=== PATIENT | female | born 1965 | race Caucasian/White ===

== ENCOUNTER 2019-11-28 14:37 | Emergency (ER) | payer OTHER, SELFPAY ==
--- NOTE | ~2019-11-28 | XR_ITS ---
XR knee RT min 4V 11/28/2019 15:26 Indication: Right lateral knee pain after recent fall Procedure: 4 views right knee Comparison: 05/03/2017 Findings: There is a nondisplaced proximal fibular metaphyseal fracture. No significant joint effusio n. There is mild patellofemoral compartment osteoarthritis. No foreign bodies. Impression: 1: Nondisplaced proximal fibular metaphyseal fracture. Reviewed, dictated and finalized at location A. R MANAGER Impression: 1: Nondisplaced proximal fibular metaphyseal fracture.
[2019-11-28 14:51] VITALS: BP 131/75; PULSE 86; RESP 16; TEMP 37.4; O2SAT 100
--- NOTE | 2019-11-28 15:06 | ED.GENADULT ---
HPI - General Adult General Chief complaint: Extremity Injury, Lower Stated complaint: right leg pain Time Seen by Provider: 11/28/19 15:06 Source: patient and RN notes reviewed Mode of arrival: ambulatory Limitations: no limitations History of Present Illness HPI narrative: This is a 54 years old female presented office for evaluation of right knee injury since yesterday. She was carrying about 30 pounds of box at work going down the stair, missed about 2 steps landed on the carpeted floor and a heavy box landed on her right knee.She complain of left shoulder stiffness and back spasm however pain is tolerable except her right knee. Pain is constant and worse with weightbearing. Denies numbness or tingling in the lower leg. Admits to history of knee swelling without surgery or trauma in the past. She is right hand dominant. Denies head injury. She has tried ice prior to arrival. Related Data Home Medications Medication Instructions Recorded Confirmed cyclobenzaprine 5 mg tablet 5 mg PO TID PRN 10/16/19 11/28/19 estradiol-norethindrone acet 0.5 1 tablet PO DAILY 10/16/19 11/28/19 mg-0.1 mg tablet Allergies Allergy/AdvReac Type Severity Reaction Status Date / Time Penicillins Allergy Unknown Verified 11/28/19 15:10 Review of Systems Review of Systems: Narrative: GENERAL: Denies feeling ill RESP: Denies dyspnea CARDIOVASCULAR: Denies chest sore ABDOMINAL: Denies stomache/feeling nausea : Denies urinary or bowel incontinence. SKIN:Reports right thigh bruise contribute to injury MUSCULOSKELETAL:Reports right knee worsening swelling with pain that goes down to her calf NEURO: Denies head injury or dizziness prior to accident [facility] Past Medical History Medical History Alopecia Arthritis Basal cell carcinoma Cholecystectomy planned Chronic low back pain with right-sided sciatica Essential (primary) hypertension Gallbladder disorder Insomnia Right medial knee pain Seasonal allergic rhinitis Skin cancer Squamous cell carcinoma of skin of chest Surgical History Surgical History H/O breast surgery History of nasal surgery Family History Family History Mother Cerebrovascular accident Family history of lung cancer Family history of malignant neoplasm of esophagus Father Carcinoma of colon Other Diabetes mellitus Social History Social History Smoking status: Never smoker Alcohol intake: current Comments At time of signature, I agree with nursing past medical, surgical, social and family history. There is no relevant family history pertinent to the presenting complaint. Exam Narrative: Exam Narrative: GENERAL: This is a well-nourished, well-developed patient, in no apparent distress. CARDIOVASCULAR: Regular rate and rhythm without murmurs, gallops, or rubs. RESPIRATORY: Clear to auscultation. Breath sounds equal bilaterally. No wheezes, rales, or rhonchi. GASTROINTESTINAL: Abdomen soft, non-tender, nondistended. Bowel sounds are active. No hepato-splenomegaly, or palpable masses. No guarding. NEURO: awake, alert, and oriented to person, place and time. There were no obvious focal neurologic abnormalities. Steady gait EXTREMITIES: Upper extremity with normal range of motion.She able to take all pressure without any difficulty. Patient is able to bear weight and ambulate with pain. The R knee is without obvious deformity when comparing to the L; however there is swelling noted in right knee. Patient is able to fully extended knee, internal and external rotation with some pain. Nontender to palpate of the patella, no effusion.There is tenderness over the medial and lateral joint line. NO quadriceps tenderness. Distal motor and neurovascular status intact. There is localize bruise not
== END 2019-11-28 16:39 | disposition home or self-care (01) ==
PROVIDERS: Emergency Provider Nurse Practitioner; PCP Family Medicine
DX: S82.831A Other fracture of upper and lower end of right fibula, initial encounter for closed fracture (principal); W10.9XXA Fall (on) (from) unspecified stairs and steps, initial encounter; M19.90 Unspecified osteoarthritis, unspecified site; Z85.828 Personal history of other malignant neoplasm of skin; I10 Essential (primary) hypertension; L65.9 Nonscarring hair loss, unspecified
CPT/HCPCS: 73564; 99213; 99214; G0463; L1830

== ENCOUNTER 2019-12-05 13:03 | Outpatient (CLI) | payer OTHER, SELFPAY ==
--- NOTE | ~2019-12-05 | US_ITS ---
EXAMINATION: US venous doppler LE RT DATE: 12/05/2019 13:49 INDICATION: Right lower limb swelling TECHNIQUE: Mack scale images without and with compression and Doppler images of the right lower extre mity veins were obtained. COMPARISON: 01/04/2013 FINDINGS: The right common femoral vein, profunda femoral vein, femoral vein, popliteal vein, peronea l trunk, posterior tibial veins, and greater saphenous vein are patent. IMPRESSION: 1. Patent right lower extremity veins. No evidence of deep venous thrombosis. Reviewed, dictated and finalized at location A. 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
== END 2019-12-05 13:04 | disposition home or self-care (01) ==
PROVIDERS: PCP Family Medicine; Visit Provider Orthopaedic Surgery
DX: R22.41 Localized swelling, mass and lump, right lower limb (principal)
CPT/HCPCS: 93971

== ENCOUNTER 2020-02-26 23:21 | Emergency (ER) | payer OTHER, SELFPAY ==
--- NOTE | ~2020-02-26 | XR_ITS ---
EXAMINATION: XR knee LT min 4V DATE: 02/27/2020 00:24 INDICATION: Left knee pain post fall TECHNIQUE: Anteroposterior, 2 oblique and crosstable lateral views of the left knee were obtained COMPARISON: None. FINDINGS: Alignment is normal. No fracture. Joint spaces appear normal. No joint effusion/layering lipohemarth rosis. Soft tissues are unremarkable. IMPRESSION: 1. Negative left knee radiographs. Reviewed, dictated and finalized at location A.
--- NOTE | ~2020-02-26 | XR_ITS ---
EXAMINATION: XR knee RT min 4V, XR tibia fibula RT 2V DATE: 02/27/2020 00:23 INDICATION: Right knee and lower leg pain post fall TECHNIQUE: 1. Anteroposterior, 2 oblique and crosstable lateral views of the affected knee were obtained 2. AP and lateral views of the right lower leg were obtained. COMPARISON: 01/16/2020 FINDINGS: Progressive healing of a nondisplaced proximal metaphyseal fracture of the right fibula with maturati on of bridging callus formation with decreasing lucency along the fracture line. Alignment remains es sentially anatomic. No new fractures identified. 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 Joint space at the right knee, ankle and hindfoot appear normal. No right knee or ankle joint effusion. IMPRESSION: 1. Advanced healing of a nondisplaced proximal right fibular fracture. No acute osseous abnormality. Reviewed, dictated and finalized at location A. IMPRESSION: 1. Advanced healing of a nondisplaced proximal right fibular fracture. No acute osseous abnormality.
[2020-02-26 23:25] VITALS: BP 141/87; PULSE 91; RESP 18; TEMP 36; O2SAT 99
--- NOTE | 2020-02-27 01:22 | ED.LOWEXIN ---
HPI - Extremity Injury (Lower) General Chief Complaint: Extremity Injury, Lower Stated Complaint: bilat leg injury Time Seen by Provider: 02/26/20 23:27 Source: RN notes reviewed History of Present Illness HPI Narrative: Patient presents emergency department from home for bilateral lower extremity pain. Patient states that approximately 30 this evening she was walking when she was carrying a box and tripped and fell landing on her bilateral knees. Patient states approximately 6 weeks ago she had fallen and had a right proximal fibula fracture. She notes pain over that region as well as pain over left anterior knee. She denies striking her head or any other injuries. She denies any numbness or tingling in the extremities or any other symptoms at this time request no pain medication at this time. Patient is followed with Dr. Storey for her previous fracture and has an appointment tomorrow February 26 further evaluation Related Data Allergies Allergy/AdvReac Type Severity Reaction Status Date / Time Penicillins Allergy Unknown Unknown Verified 02/26/20 23:31 Review of Systems Review of Systems: Narrative: Gen.: Denies fevers or chills Musculoskeletal: See HPI Neuro: Denies numbness, tingling, weakness Skin: Denies rash Endo: Denies DM PMFSH Past Medical History Medical History Alopecia Arthritis Basal cell carcinoma Chronic low back pain with right-sided sciatica Essential (primary) hypertension Gallbladder disorder Insomnia Right medial knee pain Seasonal allergic rhinitis Skin cancer Squamous cell carcinoma of skin of chest Social History Social History Smoking status: Never smoker Alcohol intake: current Additional living arrangements comments: [place] Additional occupation/education comments: [employer] Gender identity (if verbalized by the patient): Female Exam Narrative: Exam Narrative: APPEARANCE: No acute distress, nontoxic, resting in bed EYES: EOMI HEENT: Normocephalic, atraumatic, RESPIRATORY: No respiratory distress MUSCULOSKELETAl: Moves all extremities. No clubbing, cyanosis or edema.. Tender palpation of the right anterior lateral knee and right proximal fibula mild swelling no ecchymosis, full flexion extension of the knee without pain, no tenderness the right ankle or hip, tender palpation over the left anterior knee, no tenderness with medial or lateral knee, full flexion extension of the knee without pain, no tenderness of the left hip or ankle, bilateral dorsalis pedis pulse 2+, neurovascular intact NEURO: Awake and alert. Following commands, speech normal, no focal deficits SKIN:: Warm, dry. No rashes lesions or abrasions PSYCHIATRIC: Normal affect/mood, Course Course Emergency Course: Discussed with patient results of workup and diagnosis. Discussed need for follow-up with primary care, proper use of medication, and reasons to return to the emergency department. Patient understands and agrees to current treatment plan Vital Signs Vital signs: Vital Signs Temperature 96.8 F L 02/26/20 23:25 Pulse Rate 91 02/26/20 23:25 Respiratory Rate 18 02/26/20 23:25 Blood Pressure 141/87 H 02/26/20 23:25 Pulse Oximetry 99 02/26/20 23:25 Temperature 96.8 F L 02/26/20 23:25 Pulse Rate 91 02/26/20 23:25 Respiratory Rate 18 02/26/20 23:25 Blood Pressure 141/87 H 02/26/20 23:25 Pulse Oximetry 99 02/26/20 23:25 MDM - Extremity Injury (Lower) Imaging Data Attestation: I personally reviewed and interpreted this imaging study as follows: My impression: Left knee reviewed by myself shows no acute process, Radiologist's impression: Right knee reviewed by virtual radiology shows no evidence for an acute fracture Discharge Plan Discharge Clinical Impression: Contusion of knee, right, Contusion of knee, left Patient Disposition: Home, Self-Care Con
[2020-02-27 01:29] VITALS: BP 140/82; PULSE 80; RESP 17; O2SAT 98
== END 2020-02-27 01:31 | disposition home or self-care (01) ==
PROVIDERS: Emergency Provider Emergency Medicine; PCP Family Medicine
DX: S80.02XA Contusion of left knee, initial encounter (principal); S80.01XA Contusion of right knee, initial encounter; L65.9 Nonscarring hair loss, unspecified; M19.90 Unspecified osteoarthritis, unspecified site; I10 Essential (primary) hypertension; Z85.828 Personal history of other malignant neoplasm of skin; W01.0XXA Fall on same level from slipping, tripping and stumbling without subsequent striking against object, initial encounter
CPT/HCPCS: 73564; 73590; 99284

== ENCOUNTER 2020-10-28 10:44 | Outpatient (NON) | payer OTHER, SELFPAY ==
[2020-10-28 22:35] LABS: SARS-CoV-2 RNA PCR Negative
== END 2020-10-28 10:45 ==
LOC: ANHCOVIDDT 10:45
PROVIDERS: PCP Family Medicine; Visit Provider Family Medicine
DX: J01.90 Acute sinusitis, unspecified (principal); Z20.822 Contact with and (suspected) exposure to COVID-19
CPT/HCPCS: C9803; U0003; U0005

== ENCOUNTER 2020-12-12 07:41 | Outpatient (CLI) | payer OTHER, SELFPAY ==
--- NOTE | ~2020-12-12 | CT_ITS ---
EXAMINATION: CT abdomen pelvis w con DATE: 12/12/2020 08:14 INDICATION: Abdominal pain TECHNIQUE: Computed tomography (CT) of the abdomen and pelvis was performed with 100 mL Omnipaque-350 intravenous contrast. Automated exposure control and iterative reconstruction technique were employe d. The dose-length product was 1151.87 mGy-cm. COMPARISON: MRI dated 05/11/2019 FINDINGS: Minimal dependent atelectasis in the bilateral lower lobes. Calcified left lower lobe nodule along wi th calcified paraesophageal lymph nodes and a few splenic calcifications consistent with old granulom atous disease. Heart size is normal. No pericardial or pleural effusion. Bilateral breast implants. C holecystectomy clips the gallbladder fossa. Liver, pancreas, bilateral adrenal glands and right kidne y are normal. Subcentimeter low-attenuation cyst at the lower pole of the left kidney. Moderate sigmo id diverticulosis with mild inflammatory stranding at the mid sigmoid colon consistent with diverticu litis. Small bowel and appendix are normal. Trace free fluid in the pelvis. No abscess or free intrap eritoneal gas. Bladder, anteverted uterus and bilateral adnexa are unremarkable. No pathologically en larged abdominal or pelvic lymphadenopathy. Chronic appearing T12 burst fracture with 20% anterior ve rtebral body height loss and 2 mm retrolisthesis which is new since the prior study. Severe disc heig ht loss with Modic type III degenerative endplate changes at L5-S1. IMPRESSION: 1. Radiographically uncomplicated sigmoid diverticulitis. Reviewed, dictated and finalized at location B. H WORKER
[2020-12-12 08:08] LABS: Estimated Glomerular Filt Rate > 60
== END 2020-12-12 07:42 | disposition home or self-care (01) ==
LOC: ANHIMG 07:45
PROVIDERS: PCP Family Medicine; Visit Provider Family Medicine
DX: R10.9 Unspecified abdominal pain (principal); K57.32 Diverticulitis of large intestine without perforation or abscess without bleeding
CPT/HCPCS: 74177; Q9967

== ENCOUNTER 2020-12-27 10:32 | Emergency (ER) | payer OTHER, SELFPAY ==
[2020-12-27 10:48] VITALS: BP 143/92; PULSE 110; RESP 18; TEMP 37.1; O2SAT 100
--- NOTE | 2020-12-27 11:36 | ED.GENADULT ---
HPI - General Adult General Chief complaint: Allergic Reaction Stated complaint: hives/abd pain Time Seen by Provider: 12/27/20 10:40 Source: patient Mode of arrival: ambulatory Limitations: no limitations History of Present Illness HPI narrative: Patient is a 55-year-old female who presents to emergency department for evaluation of rash that began after taking Flagyl this morning patient had had some mild discomfort of the abdomen and took Cipro and Flagyl that she had leftover from a prior diverticulitis bout patient notes that when she was treated for diverticulitis she developed rash after taking Flagyl patient notes that she was nervous this morning and did not think about this she only took 1 dose patient on arrival notes some mild discomfort and itching took Benadryl otherwise in no distress she notes she had a bowel movement and now her abdomen feels much better she has no pain patient denies any rectal bleeding melena diarrhea fever chills or other complaints and is resting comfortably in the room in no distress upon arrival Related Data Allergies Allergy/AdvReac Type Severity Reaction Status Date / Time Penicillins Allergy Unknown Unknown Verified 12/27/20 10:52 Review of Systems Review of Systems: All systems reviewed & are unremarkable except as noted in HPI and below PMFSH Past Medical History Medical History Acute abdominal pain Acute sinusitis, unspecified Alopecia Arthritis Basal cell carcinoma BMI 33.0-33.9,adult Carpal tunnel syndrome Chronic low back pain with right-sided sciatica Chronic pain in right foot Chronic pain of right wrist Diverticulitis Moderate sigmoid diverticulitis 12/12/2020 Essential (primary) hypertension Gallbladder disorder Insomnia Pulmonary nodule seen on imaging study Right medial knee pain Seasonal allergic rhinitis Skin cancer Squamous cell carcinoma of skin of chest Stable burst fracture of T12 vertebra noted on CT 12/12/2020 Urticaria Surgical History Surgical History Cholecystectomy planned 2018 H/O breast surgery 2005 History of nasal surgery 2007 Family History Family History Mother Cerebrovascular accident Family history of lung cancer Family history of malignant neoplasm of esophagus Father Carcinoma of colon Other Diabetes mellitus Social History Social History Smoking status: Never smoker Alcohol intake: current Substance use: never Substance use type: does not use Additional living arrangements comments: [place] Additional occupation/education comments: [employer] Gender identity (if verbalized by the patient): Female Exam Narrative: Exam Narrative: GENERAL: Well-appearing, well-nourished, and in no acute distress. HEAD: Normocephalic, atraumatic. EYES: PERRLA and EOMI. ENT: Nares clear, no rhinorrhea or epistaxis. Mucous membranes moist. No angioedema in the oropharynx NECK: Supple. No adenopathy or masses. No stridor CHEST: Clear to auscultation. No respiratory distress. No wheezes rales or rhonchi HEART: Regular rate and rhythm. No murmur heard. Normal peripheral pulses. ABDOMEN: Soft, nontender, nondistended, EXTREMITIES: Normal range of motion. No edema. SKIN: Warm, dry, no rash. A few small areas where she has a papular rash NEURO: No focal deficits. Alert and oriented x3. Cranial nerves II through XII grossly intact PSYCH: Normal mood and affect. Course Course Emergency Course: Patient in the room no distress will be treated for allergic reaction notes that her abdomen feels fine she has nontender exam afebrile nontoxic-appearing feels comfortable with going home will follow with gastroenterology and primary care ABCs intact vital signs stable Vital Signs Vital signs: Vital Si
[2020-12-27 12:12] VITALS: BP 150/93; PULSE 80; RESP 20; O2SAT 99
== END 2020-12-27 12:14 | disposition home or self-care (01) ==
PROVIDERS: Emergency Provider Emergency Medicine; PCP Family Medicine
DX: L27.0 Generalized skin eruption due to drugs and medicaments taken internally (principal); T37.3X5A Adverse effect of other antiprotozoal drugs, initial encounter; M19.90 Unspecified osteoarthritis, unspecified site; L65.9 Nonscarring hair loss, unspecified; Z85.828 Personal history of other malignant neoplasm of skin; K57.30 Diverticulosis of large intestine without perforation or abscess without bleeding; I10 Essential (primary) hypertension
CPT/HCPCS: 99283

== ENCOUNTER → 2021-02-14 07:25 | Outpatient (CLI) | payer OTHER, SELFPAY ==
--- NOTE | ~2021-02-14 | US_ITS ---
US abdomen complete EXAMINATION: US Abdomen Complete INDICATION: Right upper quadrant pain PROCEDURE: Realtime High Resolution abdomen ultrasound. COMPARISON: CT dated 12/12/2020 FINDINGS: Gallbladder is surgically absent. Mildly dilated common duct measuring 9 mm, likely attribu table to prior cholecystectomy. No obstructing stone or mass identified. Liver echotexture within normal limits without focal mass. Pancreas within normal limits. Pancreati c tail is obscured by bowel gas. Spleen is unremarkeable. Renal echotexture is within normal limits bilaterally without hydronephrosis, contour deforming mass or renal stone. Right kidney measures 9.5 cm. Left kidney measures 10.1 cm. Visualized aspects of the aorta and IVC are within normal limits. Portal vein is patent. No sonograph ic Calderon's sign indicated by the technologist. IMPRESSION: 1: Unremarkable abdominal ultrasound post cholecystectomy. Reviewed, dictated and finalized at location A.
== END ==
PROVIDERS: Visit Provider Physician Assistant Medical
DX: R10.11 Right upper quadrant pain (principal); G89.29 Other chronic pain; Z90.49 Acquired absence of other specified parts of digestive tract
CPT/HCPCS: 76700

== ENCOUNTER 2021-05-21 07:41 | Outpatient (CLI) | payer OTHER, SELFPAY ==
--- NOTE | 2021-05-21 07:55 | ECHO_ITS ---
Patient Info Name: Nguyen Amos Age: 56 years : 1965 Gender: Female Ht: 68 in Wt: 200 lbs BSA: 2.11 m2 HR: 89 bpm BP: 138 / 93 mmHg Heart Rhythm: Sinus Rhythm Technical Quality: Good Exam Date: 05/21/2021 8:14 AM Exam Location: [facility] Pulmonary Patient Status: Outpatient Admit Date: 05/21/2021 Staff Ordering Physician: Sebastian Pettit MD Poolroom Table Attendant: Liset Stephenson RDCS Attending Provider: Sebastian Pettit MD Exam Type: CA echo doppler color flow Study Info Indications R07.89 - Other chest pain Complete two-dimensional, color flow and Doppler transthoracic echocardiogram is performed. Summary 1. Left ventricular chamber dimension is normal. 2. Left ventricular systolic function is normal, estimated at 60-65%. 3. The left ventricular diastolic function is grade I diastolic dysfunction. 4. E/e' 7 is not elevated. 5. There is trace mitral valve regurgitation. 6. There is trace tricuspid valve regurgitation. 7. No pulmonary hypertension, estimated pulmonary arterial systolic pressure is 27 mmHg. 8. Complete two-dimensional, color flow and Doppler transthoracic echocardiogram is performed. Left Ventricle E/e' 7 is not elevated. Left ventricular chamber dimension is normal. Left ventricular systolic function is normal, estimated at 60-65%. The left ventricular diastolic function is grade I diastolic dysfunction. Right Ventricle Right ventricular chamber dimension is normal. Right ventricular systolic function is normal. Left Atria Left atrial chamber dimension is normal. Right Atria Right atrial chamber dimension is normal. Aortic Valve The aortic valve is trileaflet. There is no aortic valve stenosis. There is no aortic valve regurgitation. Pulmonic Valve There is no pulmonic regurgitation. Mitral Valve There is no mitral valve stenosis. There is trace mitral valve regurgitation. Tricuspid Valve There is trace tricuspid valve regurgitation. No pulmonary hypertension, estimated pulmonary arterial systolic pressure is 27 mmHg. Pericardium/Pleural There is no pericardial effusion. Inferior Vena Cava Normal inferior vena cava with >50% collapse upon inspiration consistent with normal right atrial pressure, 5 mmHg. Aorta The aortic root size at the sinus of Valsalva is normal. Left Ventricular Outflow Tract Name Value Normal LVOT 2D LVOT Diameter 2.3 cm LVOT Doppler LVOT Peak Gradient 7 mmHg LVOT Mean Gradient 3 mmHg LVOT VTI 25 cm LVOT VTI/AV VTI Ratio 0.8 LVOT Stroke Volume 100 ml LVOT CO 8.4 l/min LVOT CI 4.0 l/min/m2 Pulmonic Valve Name Value Normal RVOT Doppler RVOT Peak Gradient
--- NOTE | 2021-05-21 07:55 | EST_ITS ---
Patient Info Name: Nguyen Amos Age: 56 years : 1965 Gender: Female Ht: 68 in Wt: 200 lbs BSA: 2.11 m2 Exam Date: 05/21/2021 8:59 AM Exam Location: [facility] Stress Patient Status: Outpatient Admit Date: 05/21/2021 Staff Ordering Physician: Sebastian Pettit MD Attending Provider: Sebastian Pettit MD Exercise Technologist: Ana Laura Crawford RDCS Exercise Physician: Jd Bolanos DO Exam Type: CA stress test treadmill Study Info Indications R07.89 - Other chest pain A treadmill exercise stress test was performed. Summary 1. 1. Negative Kristian exercise stress test for ischemic ST changes by ECG criteria. 2. 2. Good functional capacity, achieving 9.8 METs of workload. 3. 3. Appropriate HR response to exercise. 4. 4. Appropriate HR recovery at 1 minute post exercise. 5. 5. No imaging with stress testing. 6. 6. Patient informed of the above results. Protocol: Kristian Stress ECG Details Stage: REST Duration (min): 4 min : 39 sec Speed (mph): 0.0 Grade (%): 0 HR (bpm): 84 SBP (mmHg): 139 DBP (mmHg): 85 METS: --- Stage: REST Duration (min): 4 min : 57 sec Speed (mph): 0.0 Grade (%): 0 HR (bpm): 85 SBP (mmHg): 139 DBP (mmHg): 85 METS: --- Stage: REST Duration (min): 7 min : 51 sec Speed (mph): 0.0 Grade (%): 0 HR (bpm): 90 SBP (mmHg): 139 DBP (mmHg): 85 METS: --- Stage: STAGE 1 Duration (min): 1 min : 0 sec Speed (mph): 1.7 Grade (%): 10 HR (bpm): 107 SBP (mmHg): 139 DBP (mmHg): 85 METS: --- Stage: STAGE 1 Duration (min): 2 min : 0 sec Speed (mph): 1.7 Grade (%): 10 HR (bpm): 114 SBP (mmHg): 139 DBP (mmHg): 85 METS: --- Stage: STAGE 1 Duration (min): 3 min : 0 sec Speed (mph): 1.7 Grade (%): 10 HR (bpm): 119 SBP (mmHg): 168 DBP (mmHg): 80 METS: --- Stage: STAGE 2 Duration (min): 1 min : 0 sec Speed (mph): 2.5 Grade (%): 12 HR (bpm): 125 SBP (mmHg): 168 DBP (mmHg): 80 METS: --- Stage: STAGE 2 Duration (min): 2 min : 0 sec Speed (mph): 2.5 Grade (%): 12 HR (bpm): 132 SBP (mmHg): 162 DBP (mmHg): 84 METS: --- Stage: STAGE 2 Duration (min): 3 min : 0 sec Speed (mph): 2.5 Grade (%): 12 HR (bpm): 137 SBP (mmHg): 162 DBP (mmHg): 84 METS: --- Stage: STAGE 3 Duration (min): 1 min : 0 sec Speed (mph): 3.4 Grade (%): 14 HR (bpm): 145 SBP (mmHg): 162 DBP (mmHg): 84 METS: --- Stage: STAGE 3 Duration (min): 1 min : 30 sec Speed (mph): 3.4 Grade (%): 14 HR (bpm): 148 SBP (mmHg): 162 DBP (mmHg): 84 METS: --- Stage: RECOVERY Duration (min): 0 min : 29 sec Speed (mph): 0.0 Grade (%): 0 HR (bpm): 148 SBP (mmHg): 162 DBP (mmHg): 84 METS: --- Stage: RECOVERY Duration (min): 1 min : 29 sec Speed (mph):
== END 2021-05-21 07:42 | disposition home or self-care (01) ==
PROVIDERS: PCP Family Medicine; Visit Provider Family Medicine
DX: R07.89 Other chest pain (principal)
CPT/HCPCS: 93017; 93306

== ENCOUNTER → 2021-06-13 08:12 | Outpatient (CLI) | payer OTHER, SELFPAY ==
--- NOTE | ~2021-06-13 | MM_ITS ---
EXAMINATION: MM scrn rogelio implant BI w kimberly HISTORY: Screening mammogram TECHNIQUE: Craniocaudal and mediolateral oblique 3-D tomosynthesis images with implant displacement a nd synthetic 2-D images were generated. Craniocaudal and mediolateral oblique views of the breasts wi thout implant displacement were obtained using full field digital mammography. CAD analysis was submi tted and interpreted. COMPARISON: 02/21/2017, 08/15/2015, 07/25/2014 bilateral implant digital screening examinations BREAST PARENCHYMAL COMPOSITION: The breasts are almost entirely fatty. FINDINGS: Status post bilateral augmentation mammoplasty. There is no evidence of suspicious mass, ca lcification, or architectural distortion to suggest malignancy in either breast. There has been no suárez spicious interval change. IMPRESSION: 1. No mammographic evidence of malignancy. 2. Recommend routine screening mammography in one year. BI-RADS Category 1: Negative Reviewed, dictated and finalized at location A.
== END ==
PROVIDERS: PCP Family Medicine; Visit Provider Obstetrics & Gynecology Gynecology
DX: Z12.31 Encounter for screening mammogram for malignant neoplasm of breast (principal)
CPT/HCPCS: 77063; 77067

== ENCOUNTER 2021-06-27 09:59 | Outpatient (CLI) | payer OTHER, SELFPAY ==
--- NOTE | ~2021-06-27 | DEXA_ITS ---
Bone Density Report Name: Nguyen Amos Age: 56 Sex: Female Ethnicity: White Date of : 1965 Indication: postmenopausal; height loss; prior fracture; Referring Provider: EFRAIN PATTON Study: Bone densitometry was performed. Exam Date: June 27, 2021 Accession number: [id number] Bone Density: Region BMD T-score Z-score Classification AP Spine (L1-L4) 0.881 -1.5 -0.4 Osteopenia Femoral Neck (Left) 0.730 -1.1 0.0 Osteopenia Total Hip (Left) 0.819 -1.0 -0.3 Normal Total Hip Bilateral Avg 0.809 -1.1 -0.4 Osteopenia Femoral Neck (Right) 0.770 -0.7 0.4 Normal Total Hip (Right) 0.797 -1.2 -0.4 Osteopenia World Health Organization criteria for BMD impression classify patients as: Normal (T-score at or above -1.0), Osteopenia (T-score between -1.0 and -2.5), or Osteoporosis (T-score at or below -2.5). 10-year Fracture Risk(1): Major Osteoporotic Fracture 10% Hip Fracture 0.6% Reported Risk Factors: [place] (), Neck BMD=0.730, BMI=32.8, previous fracture (1) FRAX(R) Version 3.08. Fracture probability calculated for an untreated patient. Fracture probability may be lower if the patient has received treatment. Clinical Information Provided by Patient: Has had a low trauma fracture Has used the following medications: Vitamin D Patient maximum height was 69 Menopause Age: 52 No regular weight bearing exercise Onset of menses at age 11 Number of children 0 Impression: The patient has low bone mass, based on the Total Spine T-score. The patient has an estimated ten-year risk of hip fracture of 0.6% and an estimated ten-year risk of major fracture of 10%, based on the WHO FRAX algorithm. The patient has risk factors, including: previous fracture. Discussion: BONE DENSITY IS LOW AT ONE OR MORE SKELETAL SITES. This patient's lowest T-score is low at one or more skeletal sites. It meets the World Health Organization's (WHO) criteria for ?low bone mass? (T-score between -1.0 and -2.5). The patient's 10-year risk of fracture as calculated by FRAX is less than the threshold where pharmacological therapy is recommended by the National Osteoporosis Foundation (NOF). However, all treatment decisions require clinical judgment and consideration of individual patient factors, including patient preferences, comorbidities, previous drug use, risk factors not captured in the FRAX model (e.g., frailty, falls, vitamin D deficiency, increased bone turnover, interval significant decline in bone density) and possible under or overestimation of fracture risk by FRAX. The patient should follow a healthful lifestyle (good nutrition with adequate calcium and vitamin D, and appropriate weight-bearing exercise). Follow-Up: Consider repeating this study in 2 to 3 years to reassess this patient's status, or sooner if there i
== END 2021-06-27 10:00 | disposition home or self-care (01) ==
LOC: ANHIMG 10:02
PROVIDERS: PCP Family Medicine; Visit Provider Obstetrics & Gynecology Gynecology
DX: Z78.0 Asymptomatic menopausal state (principal); M85.88 Other specified disorders of bone density and structure, other site; M85.851 Other specified disorders of bone density and structure, right thigh; M85.852 Other specified disorders of bone density and structure, left thigh
CPT/HCPCS: 77080

== ENCOUNTER 2022-02-12 00:40 | Day surgery (SDC) | payer OTHER, SELFPAY ==
[2022-01-26 14:08] VITALS: BMI 31.4
[2022-02-12 06:58] VITALS: BP 135/86; PULSE 102; RESP 18; TEMP 37.3; O2SAT 100; BMI 31.6
--- NOTE | 2022-02-12 07:07 | WPDANESEPPF ---
Anes - Initial Pre Proc Eval Procedure: Operation Date: 02/12/22 08:00 Proposed Procedures p Colonoscopy - Rolando Herrera MD Date/Time: 02/12/22 07:07 Surgeon: Rolando Herrera MD Pre Op Diagnosis: diverticulitis Patient Data Age: 56 Gender: F Height: 1.7 m Weight: 91.8 kg Last Vital Signs Temp 37.3 C 02/12/22 06:58 Pulse 102 H 02/12/22 06:58 Resp 18 02/12/22 06:58 BP 135/86 02/12/22 06:58 Pulse Ox 100 02/12/22 06:58 Allergies Allergy/AdvReac Type Severity Reaction Status Date / Time metronidazole Allergy Intermediate Hives Verified 02/12/22 06:56 12/18/2020 Penicillins Allergy Unknown Unknown Verified 02/12/22 06:56 Home Medications Medication Instructions Recorded Confirmed Type cyclobenzaprine 5 mg tablet 5 mg PO TID PRN #90 tablet 06/29/21 02/12/22 Rx B-12 1 tab-cap PO DAILY 12/09/21 02/12/22 History Biotin 1 tab-cap PO DAILY 12/09/21 02/12/22 History Black Cohosh 1 tab-cap PO DAILY 12/09/21 02/12/22 History Calcium Bone 1 tab-cap PO DAILY 12/09/21 02/12/22 History Collagen peptides 1 tab-cap PO DAILY 12/09/21 02/12/22 History Cranberry 1 tab-cap PO DAILY 12/09/21 02/12/22 History Grape Seed Extract 1 tab-cap PO DAILY 12/09/21 02/12/22 History Probiotic 1 tab-cap PO DAILY 12/09/21 02/12/22 History Triple [place] 3 11 tab-cap PO DAILY 12/09/21 02/12/22 History Tumeric 1 tab-cap PO DAILY 12/09/21 02/12/22 History Vitamin D 1 tab-cap PO DAILY 12/09/21 02/12/22 History Vitamin E 1 tab-cap PO DAILY 12/09/21 02/12/22 History Zinc 1 tab-cap PO DAILY 12/09/21 02/12/22 History benefiber 1 tab-cap PO DAILY 12/09/21 02/12/22 History diphenhydramine 25 1 tablet PO QHS PRN 12/09/21 02/12/22 History mg-acetaminophen 500 mg tablet multivitamin 1 tablet PO DAILY 12/09/21 02/12/22 History azithromycin 250 mg tablet See Rx Instructions PO .COMPLEX #6 01/26/22 02/12/22 Rx tablet Patient hx anesthesia problems: none Family hx anesthesia problems: none Results Review: All pre-operative results and documents have been reviewed as part of the pre-operative evaluation. [facility] Past Medical History Medical History Acute abdominal pain Acute sinusitis, unspecified Alopecia Arthritis Atypical chest pain exercise stress test negative on 05/21/2021. Echocardiogram unremarkable with mild mitral regurgitation and tricuspid regurgitation 05/21/2021 Basal cell carcinoma BMI 31.0-31.9,adult BMI 33.0-33.9,adult Carpal tunnel syndrome Chronic low back pain with right-sided sciatica Chronic pain in right foot Chronic pain of right wrist Chronic RUQ pain Diverticulitis Moderate sigmoid diverticulitis 12/12/2020 Encounter for wellness examination in adult Essential (primary) hypertension Gallbladder disorder GERD (gastroesophageal reflux disease) Insomnia Menopausal syndrome Pulmonary nodule seen on imaging study Right medial knee pain Seasonal allergic rhinitis Skin cancer Squamous cell carcinoma of skin of chest Stable burst fracture of T12 vertebra noted on CT 12/12/2020 Urticaria Surgical History Surgical History Cholecystectomy planned 2018 H/O breast surgery 2005 History of nasal surgery 2007 Family History Family History Mother Cerebrovascular accident Family history of lung cancer Family history of malignant neoplasm of esophagus Asthma Father Carcinoma of colon Hypertension Other Diabetes mellitus Social History Social History Smoking status: Never smoker Alcohol intake: never Alcohol use details: rarely wine Substance use: never Substance use type: does not use Living arrangements: with family Additional living arrangements comments: Joshua Additional occupation/education comments: [employer] Gender
--- NOTE | 2022-02-12 07:24 | WPDGICN ---
Assessment and Plan Assessment and plan (1) History of colon polyps: Code(s): Z86.010 - Personal history of colonic polyps Status: Acute Assessment and Plan: History of adenomatous colon polyps in the past. Plan is for follow-up colonoscopy now and consider this a 5 year intervals in the future. (2) Family history of colon cancer in father: Code(s): Z80.0 - Family history of malignant neoplasm of digestive organs Status: Acute Assessment and Plan: Screening colonoscopy advised now and consider this a 5 year intervals in the future. (3) Diverticulitis: Code(s): K57.92 - Diverticulitis of intestine, part unspecified, without perforation or abscess without bleeding Status: Acute Assessment and Plan: Patient with several episodes of diverticulitis this last year plan under plan is for high-fiber diet continue fiber supplementation. Patient has had treatment with antibiotics and several occasions. This will also be evaluated at time of colonoscopy. (4) Chronic RUQ pain: Code(s): R10.11 - Right upper quadrant pain; G89.29 - Other chronic pain Status: Acute Assessment and Plan: Etiology unclear. Previous EGD was unremarkable. May be related to irritable bowel syndrome. Bullock diet is encouraged. High-fiber diet should be continued. GI Consult Note Consult date/time: 02/12/22 07:24 HPI: Nguyen Amos is a 56 year old female Presents for screening colonoscopy. Patient reports several episodes of diverticulitis over the last year. She has required antibiotics on several occasions. Currently she states her bowel habits are normal while taking Benefiber. Her past history is significant for adenomatous colon polyp. Family history is significant her father had colon cancer. Patient also reports that her father had pancreatic and liver cancer. Patient denies any bleeding she states her bowel habits have returned to normal. Her most recent colonoscopy 2017 revealed only diverticular disease. Patient additionally complains of ongoing right upper quadrant abdominal pain. This been present since 2017. She states that intensified after cholecystectomy and appears to worsen after eating where she feels bloated and discomfort. Previous EGD was reported to be unremarkable. Review of Systems Review of Systems: All systems reviewed & are unremarkable except as noted in HPI and below PMFSH Past Medical History Medical History Acute abdominal pain Acute sinusitis, unspecified Alopecia Arthritis Atypical chest pain exercise stress test negative on 05/21/2021. Echocardiogram unremarkable with mild mitral regurgitation and tricuspid regurgitation 05/21/2021 Basal cell carcinoma BMI 31.0-31.9,adult BMI 33.0-33.9,adult Carpal tunnel syndrome Chronic low back pain with right-sided sciatica Chronic pain in right foot Chronic pain of right wrist Chronic RUQ pain Diverticulitis Moderate sigmoid diverticulitis 12/12/2020 Encounter for wellness examination in adult Essential (primary) hypertension Gallbladder disorder GERD (gastroesophageal reflux disease) Insomnia Menopausal syndrome Pulmonary nodule seen on imaging study Right medial knee pain Seasonal allergic rhinitis Skin cancer Squamous cell carcinoma of skin of chest Stable burst fracture of T12 vertebra noted on CT 12/12/2020 Urticaria Surgical History Surgical History Cholecystectomy planned 2018 H/O breast surgery 2005 History of nasal surgery 2007 Family History Family History Mother Cerebrovascular accident Family history of lung cancer Family history of malignant neoplasm of esophagus Asthma Father Carcinoma of colon Hypertension Other Diabetes mellitus Social History Social History (Reviewed
[2022-02-12] MEDS: LACTATED RINGERS 1,000 ML 150 ML IV CONT (07:44)
[2022-02-12 08:13] VITALS: BP 104/68; PULSE 87; RESP 18; O2SAT 100
[2022-02-12 08:23] VITALS: BP 117/77; PULSE 80; RESP 16; O2SAT 100
[2022-02-12 08:33] VITALS: BP 116/78; PULSE 78; RESP 24; O2SAT 100
== END 2022-02-12 08:45 | disposition home or self-care (01) ==
PROVIDERS: PCP Family Medicine; Visit Provider Internal Medicine Gastroenterology
PROC: 0DJD8ZZ Inspection of Lower Intestinal Tract, Via Natural or Artificial Opening Endoscopic (ICD-10-PCS; CPT 45378; principal; 2022-02-12 08:00)
DX: Z12.11 Encounter for screening for malignant neoplasm of colon (principal); K57.30 Diverticulosis of large intestine without perforation or abscess without bleeding; R10.11 Right upper quadrant pain; K64.8 Other hemorrhoids; Z86.010 Personal history of colon polyps; Z80.0 Family history of malignant neoplasm of digestive organs; I10 Essential (primary) hypertension; K21.9 Gastro-esophageal reflux disease without esophagitis; M54.41 Lumbago with sciatica, right side; M79.671 Pain in right foot; M25.531 Pain in right wrist; G89.29 Other chronic pain; R91.1 Solitary pulmonary nodule
CPT/HCPCS: 45378; J2001; J2704; J7120

== ENCOUNTER 2022-05-20 06:35 | Outpatient (CLI) | payer OTHER, SELFPAY ==
--- NOTE | ~2022-05-20 | CT_ITS ---
EXAMINATION: CT abdomen pelvis wo con DATE: 05/20/2022 07:02 INDICATION: Lower abdominal pain. Diverticulitis. TECHNIQUE: Computed tomography (CT) of the abdomen and pelvis was performed without intravenous contr ast. Automated exposure control and iterative reconstruction technique were employed. Exam dose: 100 0.60 mGy-cm total exam DLP. COMPARISON: 02/14/2021 complete abdominal ultrasound examination, reported unremarkable postcholecystec bravo 12/12/2020 CT abdomen pelvis: Sigmoid diverticulitis was reported FINDINGS: The lung bases are clear of infiltrate or consolidation. Left lower lobe calcified pulmonar y granuloma. Normal heart size. No pericardial or pleural effusion. Bilateral breast implants. Status post cholecystectomy. No bile duct or pancreatic duct dilatation. No hepatic or pancreatic spa ce-occupying mass lesion or pancreatic calcification. Multiple splenic calcified granulomas. Normal splenic size. Normal morphology of the adrenal glands. Small lower pole left renal cyst. No urinary tract calculus or hydroureteronephrosis. The urinary rodrigue dder, uterus and adnexal areas are unremarkable. Normal caliber of the abdominal aorta. No intraperitoneal or retroperitoneal or pelvic mass lesion or adenopathy or ascites. Normal appendix. Diverticulosis of the left and to a minimal extent right colon. No CT evidence of diverticulitis. No bowel obstruction, bowel wall thickening, pneumatosis or intraperitoneal free air. Small fat-containing umbilical hernia. Chronic moderate anterior wedge burst fracture deformity of T12. Mild chronic depression of the superior vertebral endplate of L4. Severe degenerative disc disease and mild retrolisthesis at L5-S1. IMPRESSION: Diverticulosis of the colon; no CT evidence of diverticulitis Normal appendix Status post cholecystectomy Small lower pole left renal cyst Reviewed, dictated and finalized at Location A. Reviewed, dictated and finalized at location B.
== END 2022-05-20 06:36 | disposition home or self-care (01) ==
PROVIDERS: PCP Family Medicine; Visit Provider Nurse Practitioner Family
DX: R10.32 Left lower quadrant pain (principal); Z90.49 Acquired absence of other specified parts of digestive tract; K57.30 Diverticulosis of large intestine without perforation or abscess without bleeding; N28.1 Cyst of kidney, acquired
CPT/HCPCS: 74176

== ENCOUNTER → 2022-06-30 07:48 | Outpatient (CLI) | payer OTHER, SELFPAY ==
--- NOTE | ~2022-06-30 | US_ITS ---
EXAMINATION: US soft tissue head and neck DATE: 06/30/2022 08:03 INDICATION: Left forehead lump. Distorted the skin and subcutaneous tissue. TECHNIQUE: Multiple grayscale and Doppler ultrasound images of the head and neck were obtained. COMPARISON: CT sinuses 07/23/2015 FINDINGS: In the patient's area of concern in the left forehead, there is a raised area of the skull. IMPRESSION: 1. Raised area of the skull in the patient's area of concern in the left forehead of uncertain signif icance without correlate on the prior CT. Consider head CT without and with contrast. Reviewed, dictated and finalized at location A. IMPRESSION: 1. Raised area of the skull in the patient's area of concern in the left forehe ad of uncertain significance without correlate on the prior CT. Consider head C T without and with contrast.
== END ==
PROVIDERS: PCP Family Medicine; Visit Provider Nurse Practitioner Family
DX: L98.9 Disorder of the skin and subcutaneous tissue, unspecified (principal)
CPT/HCPCS: 76536

== ENCOUNTER 2022-07-03 08:57 | Outpatient (CLI) | payer OTHER, SELFPAY ==
--- NOTE | ~2022-07-03 | CT_ITS ---
EXAMINATION: CT brain wo con DATE: 07/03/2022 09:37 INDICATION: Left-sided head swelling. Headache. TECHNIQUE: Computed tomography (CT) of the head was performed without intravenous contrast. The dose- length product was 605.33 mGy-cm. Automated exposure control and iterative reconstruction technique w ere employed. COMPARISON: None FINDINGS: Mild generalized brain parenchymal volume loss. No acute intracranial hemorrhage, infarctio n, mass or mass effect. No ventriculomegaly or midline shift. There are scattered mild periventricula r and subcortical white matter changes, most likely related to small vessel ischemic disease (microan giopathy). Paranasal sinuses and mastoids are pneumatized. No depressed skull fractures. Midline sagi ttal images are unremarkable. IMPRESSION: 1. No acute intracranial abnormality. 2: Chronic age-related findings. Reviewed, dictated and finalized at location A.
== END 2022-07-03 08:58 | disposition home or self-care (01) ==
PROVIDERS: PCP Family Medicine; Visit Provider Nurse Practitioner Family
DX: L98.9 Disorder of the skin and subcutaneous tissue, unspecified (principal); R93.89 Abnormal findings on diagnostic imaging of other specified body structures
CPT/HCPCS: 70450

== ENCOUNTER → 2022-08-27 16:37 | Outpatient (CLI) | payer OTHER, SELFPAY ==
--- NOTE | ~2022-08-27 | MM_ITS ---
EXAMINATION: MM scrn rogelio implant BI w kimberly HISTORY: Screening mammogram TECHNIQUE: Craniocaudal and mediolateral oblique 3-D tomosynthesis images with implant displacement a nd synthetic 2-D images were generated. Craniocaudal and mediolateral oblique views of the breasts wi thout implant displacement were obtained using full field digital mammography. CAD analysis was submi tted and interpreted. COMPARISON: 06/2021, 02/21/2017, 08/15/2015 bilateral implant screening mammogram examinations BREAST PARENCHYMAL COMPOSITION: The breasts are almost entirely fatty. FINDINGS: Status post bilateral augmentation mammoplasty. There is no evidence of suspicious mass, ca lcification, or architectural distortion to suggest malignancy in either breast. There has been no suárez spicious interval change. IMPRESSION: 1. No mammographic evidence of malignancy. 2. Recommend routine screening mammography in one year. BI-RADS Category 1: Negative Reviewed, dictated and finalized at location A. 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
== END ==
PROVIDERS: PCP Family Medicine; Visit Provider Obstetrics & Gynecology Gynecology
DX: Z12.31 Encounter for screening mammogram for malignant neoplasm of breast (principal)
CPT/HCPCS: 77063; 77067

== ENCOUNTER → 2023-02-15 12:40 | Outpatient (CLI) | payer OTHER, SELFPAY ==
--- NOTE | ~2023-02-15 | XR_ITS ---
Clinical Indication: Chest pain PA and lateral views of the chest: Comparison: 07/07/2015 Findings: The lungs are clear, without evidence of focal consolidation or pleural effusion. Cardiome diastinal silhouette is within normal limits. Bones and soft tissues are unremarkable. Impression: Normal chest. Reviewed, dictated and finalized at location . Impression: Normal chest.
--- NOTE | ~2023-02-15 | XR_ITS ---
EXAM: [id number]_[id number] DATE: 02/15/2023 13:01 HISTORY: neck pain, headaches . COMPARISON: 12/20/2016. FINDINGS: Osteopenia. Craniocervical association and atlantoaxial joint are aligned. Mild degenerati ve change at the atlantodental axial joint. No prevertebral soft tissue swelling. Trace 1 mm retrolis theses at C4-5 and C5-6. Vertebral body heights are maintained. Multilevel disc space narrowing and m arginal osteophytosis, moderate at C4-5 through C6-7. Multilevel mild facet hypertrophy and sclerosis . IMPRESSION: Trace retrolistheses at C4-5 and C5-6. Moderate degenerative disc disease at C4-5 through C6-7. Mild multilevel facet arthropathy Reviewed, dictated and finalized at location K. IMPRESSION: Trace retrolistheses at C4-5 and C5-6. Moderate degenerative disc d isease at C4-5 through C6-7. Mild multilevel facet arthropathy
== END ==
PROVIDERS: PCP Nurse Practitioner Family; Visit Provider Nurse Practitioner Family
DX: R51.9 Headache, unspecified (principal); M50.323 Other cervical disc degeneration at C6-C7 level; M50.321 Other cervical disc degeneration at C4-C5 level
CPT/HCPCS: 71046; 72040

== ENCOUNTER → 2023-07-14 09:51 | Outpatient (CLI) | payer OTHER, SELFPAY ==
--- NOTE | ~2023-07-14 | MR_ITS ---
EXAMINATION: MR brain/brain stem wo/w con DATE: 07/14/2023 11:09 INDICATION: Chronic tension-type headache, not intractable. Left headache. Left facial pain. TECHNIQUE: Magnetic resonance imaging (MRI) of the brain and brainstem was performed without and with 19 mL MultiHance intravenous contrast. 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 There are a few areas of non specific increased T2-weighted signal intensity in the cerebral white matter, which is within normal limits for the patient's age. There is no intracranial hemorrhage, acute infarction, or abnormal intr acranial mass lesion. The cisternal segments of the trigeminal nerves are normal. The ventricles are normal in size. There is a mucous retention cyst right maxillary sinus. The mastoid air cells are nor mal. The orbits are normal. IMPRESSION: 1. Normal brain. Reviewed, dictated and finalized at location E. IMPRESSION: 1. Normal brain.
== END ==
PROVIDERS: PCP Student in an Organized Health Care Education/Training Program; Visit Provider Family Medicine
DX: G44.229 Chronic tension-type headache, not intractable (principal); G50.0 Trigeminal neuralgia
CPT/HCPCS: 70553; A9577

== ENCOUNTER → 2023-08-25 14:37 | Outpatient (CLI) | payer OTHER, SELFPAY ==
--- NOTE | ~2023-08-25 | DEXA_ITS ---
Bone Density Report Name: MONICA COLBERT Age: 58 Sex: Female Ethnicity: White Date of : 1965 Indication: postmenopausal; screening for osteoporosis; height loss; prior fracture; Referring Provider: DAVION, SMOOTH Study: Bone densitometry was performed. Exam Date: August 25, 2023 Accession number: [id number] Bone Density: Region BMD T-score Z-score Classification AP Spine (L1-L4) 0.878 -1.5 -0.2 Osteopenia Femoral Neck (Left) 0.694 -1.4 -0.2 Osteopenia Total Hip (Left) 0.813 -1.1 -0.2 Osteopenia Femoral Neck (Right) 0.719 -1.2 0.0 Osteopenia Total Hip (Right) 0.804 -1.1 -0.3 Osteopenia Total Hip Mean 0.809 -1.1 -0.3 Osteopenia World Health Organization criteria for BMD impression classify patients as: Normal (T-score at or above -1.0), Osteopenia (T-score between -1.0 and -2.5), or Osteoporosis (T-score at or below -2.5). 10-year Fracture Risk(1): Major Osteoporotic Fracture 12% Hip Fracture 0.9% Reported Risk Factors: [place] (), Neck BMD=0.694, BMI=34.2, previous fracture (1) FRAX(R) Version 3.08. Fracture probability calculated for an untreated patient. Fracture probability may be lower if the patient has received treatment. Clinical Information Provided by Patient: Has had a low trauma fracture Has used the following medications: Vitamin D, Calcium Patient maximum height was 69 Menopause Age: 48 No regular weight bearing exercise Does not regularly consume dairy products Drinks caffeinated beverages Onset of menses at age 11 Number of children 0 Impression: The patient has low bone mass, based on the Total Spine T-score. The patient has an estimated ten-year risk of hip fracture of 0.9% and an estimated ten-year risk of major fracture of 12%, based on the WHO FRAX algorithm. The patient has risk factors, including: previous fracture. Discussion: BONE DENSITY IS LOW AT ONE OR MORE SKELETAL SITES. This patient's lowest T-score is low at one or more skeletal sites. It meets the World Health Organization's (WHO) criteria for ?low bone mass? (T-score between -1.0 and -2.5). The patient's 10-year risk of fracture as calculated by FRAX is less than the threshold where pharmacological therapy is recommended by the National Osteoporosis Foundation (NOF). However, all treatment decisions require clinical judgment and consideration of individual patient factors, including patient preferences, comorbidities, previous drug use, risk factors not captured in the FRAX model (e.g., frailty, falls, vitamin D deficiency, increased bone turnover, interval significant decline in bone density) and possible under or overestimation of fracture risk by FRAX. The patient should follow a healthful lifestyle (good nutrition with adequate calcium and vitamin D, and appropriate weight-bearing exerc
== END ==
PROVIDERS: PCP Nurse Practitioner; Visit Provider Nurse Practitioner
DX: M85.88 Other specified disorders of bone density and structure, other site (principal); M85.852 Other specified disorders of bone density and structure, left thigh; M85.851 Other specified disorders of bone density and structure, right thigh
CPT/HCPCS: 77080

== ENCOUNTER 2023-09-22 14:07 | Outpatient (CLI) | payer OTHER, SELFPAY ==
--- NOTE | ~2023-09-22 | MM_ITS ---
EXAMINATION: MM scrn rogelio implant BI w kimberly HISTORY: Screening mammogram TECHNIQUE: Craniocaudal and mediolateral oblique 3-D tomosynthesis images with implant displacement a nd synthetic 2-D images were generated. Craniocaudal and mediolateral oblique views of the breasts wi thout implant displacement were obtained using full field digital mammography. CAD analysis was submi tted and interpreted. COMPARISON: Comparison to multiple prior studies sequentially, with oldest reviewed study dated 07/10. BREAST PARENCHYMAL COMPOSITION: The breasts are almost entirely fatty. FINDINGS: There are bilateral subpectoral silicone implants. There is no evidence of suspicious mass, calcification, or architectural distortion to suggest malignancy in either breast. There has been no suspicious interval change. IMPRESSION: 1. No mammographic evidence of malignancy. 2. Recommend routine screening mammography in one year. BI-RADS Category 1: Negative Reviewed, dictated and finalized at location A. 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
== END 2023-09-22 14:08 ==
PROVIDERS: PCP Obstetrics & Gynecology Gynecology; Visit Provider Obstetrics & Gynecology Gynecology
DX: Z12.31 Encounter for screening mammogram for malignant neoplasm of breast (principal)
CPT/HCPCS: 77063; 77067

== ENCOUNTER 2024-03-09 06:34 | Outpatient (CLI) | payer OTHER, SELFPAY ==
--- NOTE | ~2024-03-09 | CT_ITS ---
EXAMINATION: CT brain wo/w con DATE: 03/09/2024 07:12 INDICATION: Lesion of skin of scalp. TECHNIQUE: Computed tomography (CT) of the head was performed without and with 100 mL Omnipaque 350 i ntravenous contrast. The mA was adjusted according to patient size. Iterative reconstruction techniqu e was employed. The dose-length product was 1210.67 mGy-cm. COMPARISON: Head CT 07/03/2022, right MRI 07/14/2023 FINDINGS: There is no intracranial hemorrhage, acute infarction, or abnormal intracranial mass lesion . The ventricles are normal in size. The paranasal sinuses are clear. The orbits are normal. The mast oid air cells are normal. IMPRESSION: 1. No abnormal scalp mass identified. 2. Normal brain. Reviewed, dictated and finalized at location A.
[2024-03-09 07:04] LABS: Estimated Glomerular Filt Rate > 60
== END 2024-03-09 06:35 | disposition home or self-care (01) ==
PROVIDERS: PCP Nurse Practitioner Family; Visit Provider Nurse Practitioner Family
DX: L98.9 Disorder of the skin and subcutaneous tissue, unspecified (principal)
CPT/HCPCS: 70470; Q9967

== ENCOUNTER 2024-10-27 11:01 | Outpatient (CLI) | payer OTHER, SELFPAY ==
--- NOTE | ~2024-10-27 | US_ITS ---
EXAMINATION: US pelvic complete DATE: 10/27/2024 11:21 INDICATION: Pelvic pain TECHNIQUE: Multiple transabdominal sonographic images of the pelvis were obtained. COMPARISON: 05/25/2012; CT abdomen pelvis 05/20/2022 FINDINGS: Uterus: 4.8 x 1.8 x 3.7 cm. Endometrial complex measures 3 mm. Right Ovary: Not visualized. No adnexal mass. Left Ovary: Not visualized. No adnexal mass. There is no free fluid in the pelvis. IMPRESSION: Bilateral ovaries not visualized. Otherwise normal transabdominal pelvic sonogram findings. Reviewed, dictated and finalized at location K. 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 Otherwise normal transabdominal pelvic sonogr am findings.
== END 2024-10-27 11:02 | disposition home or self-care (01) ==
LOC: MICIMG 11:04
PROVIDERS: PCP Nurse Practitioner Family; Visit Provider Nurse Practitioner
DX: R10.2 Pelvic and perineal pain (principal)
CPT/HCPCS: 76856

== ENCOUNTER 2025-03-16 11:08 | Outpatient (CLI) | payer OTHER, SELFPAY ==
--- NOTE | ~2025-03-16 | MM_ITS ---
EXAMINATION: MM scrn rogelio implant BI w kimberly HISTORY: Screening mammogram TECHNIQUE: Craniocaudal and mediolateral oblique 3-D tomosynthesis images with implant displacement a nd synthetic 2-D images were generated. Craniocaudal and mediolateral oblique views of the breasts wi thout implant displacement were obtained using full field digital mammography. CAD analysis was submi tted and interpreted. COMPARISON: Comparison to multiple prior studies sequentially, with oldest reviewed study dated 03/2015. BREAST PARENCHYMAL COMPOSITION: Not Dense: The breasts are almost entirely fatty. FINDINGS: There is no evidence of suspicious mass, calcification, or architectural distortion to sugg est malignancy in either breast. There has been no suspicious interval change. IMPRESSION: 1. No mammographic evidence of malignancy. 2. Recommend routine screening mammography in one year. BI-RADS Category 1: Negative Reviewed, dictated and finalized at location B.
== END 2025-03-16 11:09 | disposition home or self-care (01) ==
LOC: MICIMG 11:10
PROVIDERS: PCP Nurse Practitioner; Visit Provider Nurse Practitioner
DX: Z12.31 Encounter for screening mammogram for malignant neoplasm of breast (principal); Z98.82 Breast implant status
CPT/HCPCS: 77063; 77067